=== PATIENT | male | born 1985 | race Hispanic/Latino ===

== ENCOUNTER 2018-08-22 10:24 | Emergency (ER) | payer OTHER ==
[~2018-08-22] VITALS: Ht 172.7 cm; Wt 68.0 kg
--- OUTSIDE RECORDS SUMMARY | 2018-08-22 10:26 | XMS REPORT | Clinical Summary ---
Author Author [employer] [employer] Organization [employer] Address Unknown Phone Unavailable Care Team Providers Care Chipper Feeder Name Role Phone Asked, No Pcp PCP Unavailable Allergies No Known Allergies Medications No known medications Active Problems Not on file Encounters Care Team Description Date Type Specialty Latisha Churchill MD Dyspnea, unspecified type (Primary Dx); Dehydration 04/29/2018 Emergency Emergency Medicine after 08/21/2017 Social History Date Tobacco Use Types Packs/Day Years Used Never Smoker Smokeless Tobacco: Never Used Alcohol Use Drinks/Week oz/Week Comments Yes 25 Cans of 15.0 beer Sex Assigned at Date Recorded Not on file Industry Job Start Date Occupation Not on file Not on file Not on file Travel End Travel History Travel Start No recent travel history available. Last Filed Vital Signs Time Taken Vital Sign Reading 04/29/2018 9:21 AM CDT Blood Pressure 131/84 04/29/2018 11:00 AM CDT Pulse 96 04/29/2018 9:21 AM CDT Temperature 36.4 C (97.5 F) 04/29/2018 11:00 AM CDT Respiratory Rate 19 04/29/2018 11:00 AM CDT Oxygen Saturation 96% - Inhaled Oxygen - Concentration - Weight - 04/29/2018 9:21 AM CDT Height 175.3 cm (5' 9") - Body Mass Index - Plan of Treatment Health Maintenance Due Date Last Done Comments INFLUENZA VACCINE 03/26/2018 Procedures Comments Procedure Name Priority Date/Time Associated Diagnosis XR CHEST 1 VW PORTABLE STAT 04/29/2018 10:38 AM CDT MAGNESIUM LEVEL STAT 04/29/2018 9:39 AM CDT SEDIMENTATION RATE STAT 04/29/2018 9:39 AM CDT MAGNESIUM LEVEL STAT 04/29/2018 9:39 AM CDT SEDIMENTATION RATE STAT 04/29/2018 9:39 AM CDT ZZESTIMATED GFR STAT 04/29/2018 9:39 AM CDT URINALYSIS SCREEN AND STAT 04/29/2018 MICROSCOPY, WITH REFLEX 9:39 AM CDT TO CULTURE B NATRIURETIC PEPTIDE STAT 04/29/2018 9:39 AM CDT TROPONIN STAT 04/29/2018 9:39 AM CDT CREATINE KINASE, TOTAL STAT 04/29/2018 (CPK) 9:39 AM CDT COMPREHENSIVE METABOLIC STAT 04/29/2018 PANEL 9:39 AM CDT HC COMPLETE BLD COUNT STAT 04/29/2018 W/AUTO DIFF 9:39 AM CDT URINE CULTURE STAT 04/29/2018 9:39 AM CDT ECG 12-LEAD STAT 04/29/2018 9:26 AM CDT after 08/21/2017 Results * XR Chest 1 Vw Portable (04/29/2018 10:38 AM CDT) Narrative Performed At EXAMINATION:XR CHEST 1 VW PORTABLE [facility] CLINICAL HISTORY:sob XR CHEST 1 VW PORTABLEimages are submitted COMPARISON:NONE FINDINGS: The cardiac silhouette is normal in size. The pulmonary vasculature is within normal limits. The lung zones have no focal area of consolidation. There is no pleural effusion or pneumothorax. IMPRESSION: 1. There is no acute cardiopulmonary disease. [id number] Procedure Note Hm Interface, Radiology Results Incoming - 04/29/2018 10:42 AM CDT EXAMINATION: XR CHEST 1 VW PORTABLE CLINICAL HISTORY: sob XR CHEST 1 VW PORTABLE images are submitted COMPARISON: NONE FINDINGS: The cardiac silhouette is normal in size. The pulmonary vasculature is within normal limits. The lung zones have no focal area of consolidation. There is no pleural effusion or pneumothorax. IMPRESSION: 1. There is no acute cardiopulmonary disease. [facility]-[id number] Performing Organization Address City/State/Zipcode Phone Number [facility] [address] [place] [address] * Urinalysis screen and microscopy, with reflex to culture (04/29/2018 9:39 AM CDT) Specimen site Clean catch [facility] DEPARTMENT OF PATHOLOGY AND GENOMIC MEDICINE Color, UA Straw [facility] DEPARTMENT OF PATHOLOGY AND GENOMIC MEDICINE Appearance, UA Clear [facility] DEPARTMENT OF PATHOLOGY AND GENOMIC MEDICINE Specific gravity, UA 1.009 1.001 - 1.035 [facility] DEPARTMENT OF PATHOLOGY AND GENOMIC MEDICINE pH, UA 7.0 5.0 - 8.5 [facility] DEPARTMENT OF PATHOLOGY AND GENOMIC MEDICINE Protein, UA Negative Negative [facility] DEPARTMENT OF PATHOLOGY AND GENOMIC MEDICINE Glucose, UA Negative Negative [facility] DEPARTMENT OF PATHOLOGY AND GENOMIC MEDICINE Ketones, UA Trace (A) Negative [facility] DEPARTMENT OF PATHOLOGY AND GENOMIC MEDICINE Bilirubin, UA Negative Negative [facility] DEPARTMENT OF PATHOLOGY AND GENOMIC MEDICINE Blood, UA Negative Negative [facility] DEPARTMENT OF PATHOLOGY AND GENOMIC MEDICINE Nitrite, UA Negative Negative [facility] DEPARTMENT OF PATHOLOGY AND GENOMIC MEDICINE Urobilinogen, UA <2.0 <2.0 [facility] DEPARTMENT OF PATHOLOGY AND GENOMIC MEDICINE Leukocyte esterase, UA Negative Negative [facility] DEPARTMENT OF PATHOLOGY AND GENOMIC MEDICINE Epithelial cells, UA <1 /HPF [facility] DEPARTMENT OF PATHOLOGY AND GENOMIC MEDICINE WBC, UA 1 0 - 1 /HPF [facility] DEPARTMENT OF PATHOLOGY AND GENOMIC MEDICINE RBC, UA 1 0 - 5 /HPF [facility] DEPARTMENT OF PATHOLOGY AND GENOMIC MEDICINE Bacteria, UA None seen None seen [facility] DEPARTMENT OF PATHOLOGY AND GENOMIC MEDICINE Yeast, UA None seen [facility] DEPARTMENT OF PATHOLOGY AND GENOMIC MEDICINE Yeast with pseudohyphae, None seen [facility] DEPARTMENT OF PATHOLOGY AND GENOMIC MEDICINE Specimen Urine Performing Organization Address [facility]/Zipcode Phone Number [address] [address] PATHOLOGY AND GENOMIC MEDICINE * Estimated GFR (04/29/2018 9:39 AM CDT) GFR Non Af Amer >90 mL/min/1.73 m2 [facility] DEPARTMENT OF PATHOLOGY AND GENOMIC MEDICINE GFR Af Amer >90 mL/min/1.73 m2 [facility] DEPARTMENT OF Comment: PATHOLOGY AND Chronic kidney disease: <60 GENOMIC MEDICINE mL/min/1.73m2 Kidney failure: <15 mL/min/1.73m2 The estimated GFR is calculated from the IDMS-traceable Modification of Diet in Renal Disease Equation. The accuracy of the calculation is poor when the creatinine is normal. Calculated values >90 mL/min/1.73m2 are not reported. This equation has not been validated in children (<18 years), women, the elderly (>70 years), or ethnic groups other than Caucasians and Americans. Specimen Plasma specimen Performing Organization Address City/State/[place] [address] PATHOLOGY AND GENOMIC MEDICINE * Troponin (04/29/2018 9:39 AM CDT) Troponin <0.30 0.00 - 0.30 ng/mL [facility] DEPARTMENT OF Comment: PATHOLOGY AND 0.30 - 1.49 GENOMIC MEDICINE ng/mlMay indicate increased risk of acute coronary syndrome. >=1.5 ng/ml Consistent with acute myocardial infarction. The diagnostic value of a single normal or non-diagnostic result is questionable.Serial samples at 2-6 hour intervals are required to rule out acute myocardial injury. Specimen Plasma specimen Performing Organization Address [facility] [place] [address] PATHOLOGY AND [employer] MEDICINE * Sedimentation rate (04/29/2018 9:39 AM CDT) Only the most recent of 2 results within the time period is included. Sedimentation rate 4 0 - 10 mm/hr [facility] DEPARTMENT OF PATHOLOGY AND GENOMIC MEDICINE Performing Organization Address [facility] [place] [address] PATHOLOGY AND GENOMIC MEDICINE * CBC with platelet and differential (04/29/2018 9:39 AM CDT) WBC 4.88 4.50 - 11.00 k/uL [facility] DEPARTMENT OF PATHOLOGY AND GENOMIC MEDICINE RBC 4.82 4.40 - 6.00 m/uL [facility] DEPARTMENT OF PATHOLOGY AND GENOMIC MEDICINE HGB 15.1 14.0 - 18.0 g/dL [facility] DEPARTMENT OF PATHOLOGY AND GENOMIC MEDICINE HCT 44.4 41.0 - 51.0 % [facility] DEPARTMENT OF PATHOLOGY AND GENOMIC MEDICINE MCV 92.1 82.0 - 100.0 fL [facility] DEPARTMENT OF PATHOLOGY AND GENOMIC MEDICINE MCH 31.3 27.0 - 34.0 pg [facility] DEPARTMENT OF PATHOLOGY AND GENOMIC MEDICINE MCHC 34.0 31.0 - 37.0 g/dL [facility] DEPARTMENT OF PATHOLOGY AND GENOMIC MEDICINE RDW - SD 46.5 37.0 - 55.0 fL [facility] DEPARTMENT OF PATHOLOGY AND GENOMIC MEDICINE MPV 12.0 8.8 - 13.2 fL [facility] DEPARTMENT OF PATHOLOGY AND GENOMIC MEDICINE Platelet count 194 150 - 400 k/uL [facility] DEPARTMENT OF PATHOLOGY AND GENOMIC MEDICINE Nucleated RBC 0.60 /100 WBC [facility] DEPARTMENT OF PATHOLOGY AND GENOMIC MEDICINE Neutrophils 59.0 39.0 - 69.0 % [facility] DEPARTMENT OF PATHOLOGY AND GENOMIC MEDICINE Lymphocytes 28.3 25.0 - 45.0 % [facility] DEPARTMENT OF PATHOLOGY AND GENOMIC MEDICINE Monocytes 10.9 (H) 0.0 - 10.0 % [facility] DEPARTMENT OF PATHOLOGY AND GENOMIC MEDICINE Eosinophils 0.6 0.0 - 5.0 % [facility] DEPARTMENT OF PATHOLOGY AND GENOMIC MEDICINE Basophils 0.6 0.0 - 1.0 % [facility] DEPARTMENT OF PATHOLOGY AND GENOMIC MEDICINE Immature granulocytes 0.6Comment: "Immature 0.0 - 1.0 % [facility] DEPARTMENT OF granulocytes" (promyelocytes, PATHOLOGY AND myelocytes, metamyelocytes) GENOMIC MEDICINE Specimen Blood Performing Organization Address [facility] [place] [address] PATHOLOGY AND [facility]IC[facility] * Urine culture (04/29/2018 9:39 AM CDT) Urine culture SEE COMMENTComment: [facility] DEPARTMENT OF Bacteriuria screen negative. PATHOLOGY AND GENOMIC MEDICINE Performing Organization Address [facility] [place] [address] PATHOLOGY AND GENOMIC MEDICINE * B natriuretic peptide (04/29/2018 9:39 AM CDT) BNP 6 0 - 100 pg/mL [facility] DEPARTMENT OF PATHOLOGY AND GENOMIC MEDICINE Specimen Blood Performing Organization Address [facility] [place] [address] PATHOLOGY AND [facility] * Magnesium level (04/29/2018 9:39 AM CDT) Only the most recent of 2 results within the time period is included. Magnesium 1.8 1.6 - 2.6 mg/dL [facility] DEPARTMENT OF PATHOLOGY AND GENOMIC MEDICINE Specimen Plasma specimen Performing Organization Address [facility] [place] [address] PATHOLOGY AND GENOMIC MEDICINE * Creatine kinase, total (CPK) (04/29/2018 9:39 AM CDT) Creatine kinase SEE COMMENTComment: 39 - 308 U/L [facility] DEPARTMENT OF Footnote--------- PATHOLOGY AND GENOMIC MEDICINE Specimen Plasma specimen Performing Organization Address City/State/Zipcode Phone Number [facility] DEPARTMENT OF [address] [place] [address] PATHOLOGY AND GENOMIC MEDICINE * Comprehensive metabolic panel (04/29/2018 9:39 AM CDT) Sodium 137 135 - 148 mEq/L [facility] DEPARTMENT OF PATHOLOGY AND GENOMIC MEDICINE Potassium SEE COMMENT 3.5 - 5.0 mEq/L [facility] DEPARTMENT OF Comment: PATHOLOGY AND Footnote--------- GENOMIC MEDICINE SPECIMEN HEMOLYZED.RECOLLECT REQUESTED FOR K+, AST, AND CK. Chloride 99 98 - 112 mEq/L [facility] DEPARTMENT OF PATHOLOGY AND GENOMIC MEDICINE CO2 23 (L) 24 - 31 mEq/L [facility] DEPARTMENT OF PATHOLOGY AND GENOMIC MEDICINE Anion gap 15@ANIO 7 - 15 mEq/L [facility] DEPARTMENT OF PATHOLOGY AND GENOMIC MEDICINE BUN 11 6 - 20 mg/dL [facility] DEPARTMENT OF PATHOLOGY AND GENOMIC MEDICINE Creatinine 0.9 0.7 - 1.2 mg/dL [facility] DEPARTMENT OF PATHOLOGY AND GENOMIC MEDICINE Glucose 100 (H) 65 - 99 mg/dL [facility] DEPARTMENT OF PATHOLOGY AND GENOMIC MEDICINE Calcium 9.4 8.3 - 10.2 mg/dL [facility] DEPARTMENT OF PATHOLOGY AND GENOMIC MEDICINE Protein 8.0 6.3 - 8.3 g/dL [facility] DEPARTMENT OF Comment: PATHOLOGY AND GENOMIC MEDICINE 4.6-7.0 g/dL 1 week 4.4-7.6 g/dL 7 months-1year 5.1-7.3 g/dL 1-2 years5.6-7 .5 g/dL >3 years6.0-8 .0 g/dL 18-150 6.3-8.3 g/dL Albumin 4.4 3.5 - 5.0 g/dL [facility] DEPARTMENT OF PATHOLOGY AND GENOMIC MEDICINE A/G ratio 1.2 0.7 - 3.8 [facility] DEPARTMENT OF PATHOLOGY AND GENOMIC MEDICINE Alkaline phosphatase 74 40 - 129 U/L [facility] DEPARTMENT OF PATHOLOGY AND GENOMIC MEDICINE AST SEE COMMENTComment: 10 - 50 U/L [facility] DEPARTMENT OF Footnote--------- PATHOLOGY AND GENOMIC MEDICINE ALT 46 5 - 50 U/L [facility] DEPARTMENT OF PATHOLOGY AND GENOMIC MEDICINE Total bilirubin 0.3 0.0 - 1.2 mg/dL [facility] DEPARTMENT OF PATHOLOGY AND GENOMIC MEDICINE Specimen Plasma specimen Performing Organization Address City/State/Zipcode Phone Number [facility] DEPARTMENT OF [address] [place] [address] PATHOLOGY AND GENOMIC MEDICINE * ECG 12 lead (04/29/2018 9:26 AM CDT) Ventricular rate 83 [facility] Atrial rate 83 [facility] NV interval 160 [facility] QRSD interval 98 [facility] QT interval 376 [facility] QTC interval 441 [facility] MUSE P axis 1 75 [facility] M[facility] QRS axis 1 83 [facility] MUSE T wave axis 62 [facility] MUSE EKG impression Normal sinus rhythm with sinus [facility] MUSE arrhythmia-ST elevation, probably due to early repolarization-Borderline ECG-No previous ECGs available- Procedure Note Latisha Churchill MD - 04/29/2018 9:37 AM CDT Emergency Department Provider Note Location: [facility] MAIN ED Patient ID: Lenny Chang is a 32 y.o. male. Chief Complaint Chief Complaint Patient presents with Dizziness lightheadedness this a.m. Shortness of Breath History of Present Illness 32 y.o. male presents to the ED with gradual onset of moderate constant dizzness that began 5 hours [employer] and is described as improving lightheadedness. The complaints are made worse with head movement and standing, and are associated with SOB and tinnitus. The pt denies palpitations. The pt states he was generally well when he woke up this morning, but noted his Sx while on his way to work an hour following. The pt states he began experiencing lightheadedness, as well as tinnitus (which lasted only several seconds and has since resolved) and SOB (which has improved). The pt notes mild Lt foot pain, but denies any recent falls or injuries, as well as long-distance travel. The pt states he consumed more EtOH than usual this past weekend, and states he did not consume breakfast this morning [employer]. The pt cites elevated stress d/t workplace responsibilities. The pt denies a PMHx of anxiety, cardiac issues, HTN, and DM. The pt denies a SHx of tobacco use, but confirms he drinks approximately 5 cans of beer "every other day" on average, and 12 cans on the weekend. The pt denies a FHx of cardiac issues. History provided by: Patient translator and interpreter used: No Dizziness Quality: Lightheadedness Severity: Moderate Onset quality: Gradual Duration: 5 hours Timing: Constant Progression: Improving Chronicity: New Context: not when bending over, not with inactivity, not with loss of consciousness, not with medication, not with physical activity and not when urinating Relieved by: None tried Worsened by: Turning head and standing up Ineffective treatments: None tried Associated symptoms: shortness of breath and tinnitus (resolved, lasting several seconds) Associated symptoms: no blood in stool, no chest pain, no diarrhea, no headaches, no nausea, no palpitations, no syncope, no vision changes and no vomiting Shortness of breath: Severity: Moderate Onset quality: Gradual Duration: 5 hours Timing: Constant Progression: Improving Risk factors: no anemia, no heart disease, no hx of stroke, no hx of vertigo, no Meniere's disease, no multiple medications and no new medications History Allergies No Known Allergies Past Medical History Past Medical History: Diagnosis Date Patient denies medical problems Past Surgical History Past Surgical History: Procedure Laterality Date NO PAST SURGERIES Past Family History No family history on file. Past Social History Social History Social History Main Topics Smoking status: Never Smoker Smokeless tobacco: Never Used Alcohol use 15.0 oz/week 25 Cans of beer per week Drug use: No Sexual activity: Not on file Past Social History Narrative Social History Social History Narrative No narrative on file Medications There are no discharge medications for this patient. There are no discharge medications for this patient. Review of Systems Review of Systems Constitutional: Negative for chills and fever. HENT: Positive for tinnitus (resolved, lasting several seconds). Negative for congestion, ear pain and sore throat. Eyes: Negative for pain, discharge, redness and itching. Respiratory: Positive for shortness of breath. Negative for cough and wheezing. Cardiovascular: Negative for chest pain, palpitations and syncope. Gastrointestinal: Negative for abdominal pain, blood in stool, diarrhea, nausea and vomiting. Endocrine: Negative for polydipsia and polyuria. Genitourinary: Negative for dysuria, flank pain and frequency. Musculoskeletal: Positive for myalgias (Lt foot). Negative for back pain, neck pain and neck stiffness. Skin: Negative for rash and wound. Neurological: Positive for dizziness and light-headedness. Negative for numbness and headaches. Psychiatric/Behavioral: Negative for agitation and confusion. All other systems reviewed and are negative. Physical Exam ED Triage Vitals [04/29/18 0921] Temp Heart Rate Respiratory Rate BP SpO2 97.5 F 90 18 131/84 99 % Temp src Heart Rate Source Patient Position BP Location FiO2 % -- Monitor Sitting Right arm -- Physical Exam Constitutional: He is oriented to person, place, and time. He appears well- developed and well-nourished. HENT: Head: Normocephalic and atraumatic. Mouth/Throat: Uvula is midline and oropharynx is clear and moist. No nasal discharge, no septal abnormalities. Eyes: Conjunctivae and EOM are normal. Pupils are equal, round, and reactive to light. Neck: Trachea normal and normal range of motion. No JVD present. no lymphadenopathy. Cardiovascular: Normal rate and regular rhythm. Pulmonary/Chest: Effort normal and breath sounds normal. No respiratory distress. He has no wheezes. He has no rhonchi. He has no rales. Symmetric chest rise, clear to auscultation bilaterally. Abdominal: Soft. Bowel sounds are normal. He exhibits no distension, no abdominal bruit and no pulsatile midline mass. There is no hepatosplenomegaly. There is no tenderness. There is no rebound and no guarding. Musculoskeletal: Neurovascularly intact, FROM. No cyanosis, clubbing, or edema. +2 distal pulses bilaterally, +2 capillary refill. Neurological: He is alert and oriented to person, place, and time. Moving all extremities. CN II-XII intact. Skin: Skin is warm and dry. No rash noted. positive for normal turgor Nursing note and vitals reviewed. ED Course Clinical Impressions as of May 02 201 Dyspnea, unspecified type Dehydration MDM MDM Number of Diagnoses or Management Options Dehydration: new and does not require workup Dyspnea, unspecified type: new and does not require workup Diagnosis management comments: Pt states his sob was during moment of anxiety and he currently has none- he really was presenting as near syncope with some anxiety in setting of recent heavy drinking and little PO intake; etoh coucneling provided Amount and/or Complexity of Data Reviewed Clinical lab tests: ordered and reviewed Tests in the radiology section of CPT: reviewed and ordered Tests in the medicine section of CPT: ordered and reviewed Decide to obtain previous medical records or to obtain history from someone other than the patient: yes Review and summarize past medical records: yes Discuss the patient with other providers: yes Independent visualization of images, tracings, or specimens: yes Risk of Complications, Morbidity, and/or Mortality Presenting problems: high Diagnostic procedures: moderate Management options: moderate Patient Progress Patient progress: improved Labs Results for orders placed or performed during the hospital encounter of 04/29/18 Urine culture Result Value Ref Range Urine culture SEE COMMENT CBC with platelet and differential Result Value Ref Range WBC 4.88 4.50 - 11.00 k/uL RBC 4.82 4.40 - 6.00 m/uL HGB 15.1 14.0 - 18.0 g/dL HCT 44.4 41.0 - 51.0 % MCV 92.1 82.0 - 100.0 fL MCH 31.3 27.0 - 34.0 pg MCHC 34.0 31.0 - 37.0 g/dL RDW - SD 46.5 37.0 - 55.0 fL MPV 12.0 8.8 - 13.2 fL Platelet count 194 150 - 400 k/uL Nucleated RBC 0.60 /100 WBC Neutrophils 59.0 39.0 - 69.0 % Lymphocytes 28.3 25.0 - 45.0 % Monocytes 10.9 (H) 0.0 - 10.0 % Eosinophils 0.6 0.0 - 5.0 % Basophils 0.6 0.0 - 1.0 % Immature granulocytes 0.6 0.0 - 1.0 % Comprehensive metabolic panel Result Value Ref Range Sodium 137 135 - 148 mEq/L Potassium SEE COMMENT 3.5 - 5.0 mEq/L Chloride 99 98 - 112 mEq/L CO2 23 (L) 24 - 31 mEq/L Anion gap 15@ANIO 7 - 15 mEq/L BUN 11 6 - 20 mg/dL Creatinine 0.9 0.7 - 1.2 mg/dL Glucose 100 (H) 65 - 99 mg/dL Calcium 9.4 8.3 - 10.2 mg/dL Protein 8.0 6.3 - 8.3 g/dL Albumin 4.4 3.5 - 5.0 g/dL A/G ratio 1.2 0.7 - 3.8 Alkaline phosphatase 74 40 - 129 U/L AST SEE COMMENT 10 - 50 U/L ALT 46 5 - 50 U/L Total bilirubin 0.3 0.0 - 1.2 mg/dL Creatine kinase, total (CPK) Result Value Ref Range Creatine kinase SEE COMMENT 39 - 308 U/L Troponin Result Value Ref Range Troponin <0.30 0.00 - 0.30 ng/mL B natriuretic peptide Result Value Ref Range BNP 6 0 - 100 pg/mL Urinalysis screen and microscopy, with reflex to culture Result Value Ref Range Specimen site Clean catch Color, UA Straw Appearance, UA Clear Specific gravity, UA 1.009 1.001 - 1.035 pH, UA 7.0 5.0 - 8.5 Protein, UA Negative Negative Glucose, UA Negative Negative Ketones, UA Trace (A) Negative Bilirubin, UA Negative Negative Blood, UA Negative Negative Nitrite, UA Negative Negative Urobilinogen, UA <2.0 <2.0 Leukocyte esterase, UA Negative Negative Epithelial cells, UA <1 /HPF WBC, UA 1 0 - 1 /HPF RBC, UA 1 0 - 5 /HPF Bacteria, UA None seen None seen Yeast, UA None seen Yeast with pseudohyphae, UA None seen Estimated GFR Result Value Ref Range GFR Non Af Amer >90 mL/min/1.73 m2 GFR Af Amer >90 mL/min/1.73 m2 Sedimentation rate Result Value Ref Range Sedimentation rate 3 0 - 10 mm/hr Magnesium level Result Value Ref Range Magnesium 1.8 1.6 - 2.6 mg/dL Sedimentation rate Result Value Ref Range Sedimentation rate 4 0 - 10 mm/hr Magnesium level Result Value Ref Range Magnesium 1.8 1.6 - 2.6 mg/dL ECG 12 lead Result Value Ref Range Ventricular rate 83 Atrial rate 83 NV interval 160 QRSD interval 98 QT interval 376 QTC interval 441 P axis 1 75 QRS axis 1 83 T wave axis 62 EKG impression Normal sinus rhythm with sinus arrhythmia-ST elevation, probably due to early repolarization-Borderline ECG-No previous ECGs available- Radiology No results found. Procedures ECG 12 lead Date/Time: 04/29/2018 9:38 AM Performed by: LATISHA CHURCHILL Authorized by: LATISHA CHURCHILL ECG reviewed by ED Physician in the absence of a wire chief: yes Previous ECG: Previous ECG: Unavailable Interpretation: Interpretation: abnormal Rate: ECG rate: 83 ECG rate assessment: normal Rhythm: Rhythm: sinus rhythm Ectopy: Ectopy: none QRS: QRS axis: Normal QRS intervals: Normal Conduction: Conduction: normal ST segments: ST segments: Abnormal Elevation: V2, V3, V4, V5, V6, II and aVF T waves: T waves: flattening Flattening: AVL Other findings: Other findings: early repolarization Differential Diagnoses This patient has a differential diagnosis of dehydration, palpitations, SVT, near-syncope, ACS, pericarditis, hypokalemia, and EtOH withdrawal. Final Diagnoses Final diagnoses: Dyspnea, unspecified type Dehydration Disposition This patient has a disposition of Discharge. Disposition: Discharge home Condition on ED Dispo: Stable. Patient Progress: Improved Risk of complications, morbidity, or mortality is: Presenting problems: high Diagnostic procedures: moderate Management options: high Requesting dc home. Patient told, understands and agrees with A&P and discharge instructions including return precautions. Close FU as in dc instructions. Júnior Elder MD [address] [facility] [id number] Report sent to physician I referred patient to for follow up. A copy of this report was given to the patient to hand deliver to the referring physician. ED Attestations Scribe Attestation: This document is recorded by Areli Aaron acting as a scribe under the direction and presence of LATISHA CHURCHILL. Provider attestation of scribe: Latisha Churchill MD: I personally performed the services recorded by the scribe in my presence. I confirm the scribe's documentation has been reviewed by me to accurately record my work, treatment, procedures, and medical decision making. INTERPRETATIONS OF LABS AND IMAGING Labs Reviewed CBC WITH PLATELET AND DIFFERENTIAL - Abnormal; Notable for the following: Result Value Monocytes 10.9 (*) All other components within normal limits COMPREHENSIVE METABOLIC PANEL - Abnormal; Notable for the following: CO2 23 (*) Glucose 100 (*) All other components within normal limits URINALYSIS SCREEN AND MICROSCOPY, WITH REFLEX TO CULTURE - Abnormal; Notable for the following: Ketones, UA Trace (*) All other components within normal limits URINE CULTURE CREATINE KINASE, TOTAL (CPK) TROPONIN B NATRIURETIC PEPTIDE ESTIMATED GFR SEDIMENTATION RATE MAGNESIUM LEVEL SEDIMENTATION RATE MAGNESIUM LEVEL POTASSIUM LEVEL AST (SGOT) CREATINE KINASE, TOTAL (CPK) XR Chest 1 Vw Portable Final Result MEDICATIONS GIVEN Medications sodium chloride 0.9 % bolus 1,000 mL (0 mL intravenous Stopped 04/29/18 1202) ED MD RECHECKS Billers: See above for interventions given to patient in ED for: Final diagnoses: Dyspnea, unspecified type Dehydration ED VISIT SUMMARY Plan: Any labs, imaging, & meds listed above w/ ED physician reassessment. If no labs, imaging, or meds are listed then none were given. RN notes & vital signs reviewed. At least 2 sets of vitals were taken & reviewed if the patient was admitted. I reviewed the pt's PMH, PSH, FH, SH, Meds and Allergy history. 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 Prior records sought & summarized confirming history of: Past Medical History: Diagnosis Date Patient denies medical problems At least 1 MD bedside reassessment occurred to update patient, determine response to treatment & recheck the patent s wellbeing. INTERPRETATIONS (additional)/Amount and/or Complexity of Data Reviewed: I reviewed the Pulse Oximetry and it is wnl by my independent interpretation. If patient was admitted to tele, then I reviewed the night monitor on the patient All labs returned while pt in ED were wnl by my independent interpretation unless otherwise noted. All lab, imaging, ECG, other tracing, or specimen results interpretations are by my independent review & interpretation in the medicine & radiology section of CPT. DIAGNOSES Final diagnoses: Dyspnea, unspecified type Dehydration All diagnoses are modified as: Acute, onset at home, initial encounter unless noted. All diagnoses are New and require Additional Workup (unless otherwise noted). DISCUSSIONS WITH CONSULTANTS AND PATIENT/PATIENT PROXY All consultants listed agreed with ED A&P, unless otherwise noted. All pt's questions & concerns addressed & answered.Pt told, understands & agrees with assessment and plan including dispo.DDX incl causes considered but not specified given they were low prob or unlikely to cause immediate or disability.MENJIVAR for unlisted unlikely or benign causes would likely yielded harm>benefit. BLOOD PRESSURE COUNSELING: I recommended the patient have their BP screened at follow up with their PCP in >1 day and < 4 weeks, that the pt or pt's proxy discuss the pt's BP with their PCP at that visit, and recommended lifestyle intervention including increased physical activity. Advanced care plan including surrogate discussed with patient and entered into medical record. I have documented a list of current medications using all immediate resources available on the date of the encounter and that list is here: No current facility-administered medications for this encounter. No current outpatient prescriptions on file. Areli Aaron 04/29/18 0947 Areli Aaron 04/29/18 1335 [facility] Stacia Churchill MD 05/02/18 0201 [facility] Organization Address City/State/Zipcode Phone Number [facility] [address] [place] [address] after 08/21/2017 Advance Directives Patient has advance care planning documents on file. For more information, artur powell contact: Orville Woodard [address] [place] [address]
[2018-08-22] MEDS ORDERED: SODIUM CHLORIDE 0.9% 1000ML 1,000 ML IV ONE (10:45)
== END 2018-08-22 11:47 | disposition home or self-care (01) ==
LOC: FSED 10:24
DX: R42 Dizziness and giddiness (principal); E86.1 Hypovolemia; E86.0 Dehydration; R53.1 Weakness; F17.210 Nicotine dependence, cigarettes, uncomplicated
CPT/HCPCS: 80053; 85025; 99284; J7030